=== PATIENT | male | born 1970 | race Caucasian/White ===

== ENCOUNTER 2019-12-31 16:15 | Emergency (ER) | payer MEDICAID ==
[~2019-12-31] VITALS: Ht 175.3 cm; Wt 83.6 kg
[~2019-12-31 16:15] MED LIST: DIAZ5TAB PO; HYDR-4383 PO; NO HOME MEDS
[2019-12-31 16:24] VITALS: BP 129/87
[2019-12-31] MEDS ORDERED: PENI500T2 PO (17:29)
[2019-12-31] MEDS ORDERED: penicillin V potassium 500mg tablet PO ONE (17:30)
[2019-12-31] MEDS ORDERED: HYDROcodone/acetaminophen 5mg/325mg tablet PO ONE (17:30)
== END 2019-12-31 17:43 | disposition home or self-care (01) ==
LOC: ER 16:16
DX: K08.89 Other specified disorders of teeth and supporting structures (principal); G89.29 Other chronic pain; Z72.89 Other problems related to lifestyle; Z56.0 Unemployment, unspecified; Z88.5 Allergy status to narcotic agent; Z79.2 Long term (current) use of antibiotics; Z79.899 Other long term (current) drug therapy
CPT/HCPCS: 99283

== ENCOUNTER 2020-06-30 15:45 | Emergency (ER) | payer MEDICAID ==
[~2020-06-30] VITALS: Ht 175.3 cm; Wt 84.5 kg
[2020-06-30 15:46] VITALS: BP 115/81
[2020-06-30] MEDS ORDERED: ketorolac tromethamine 15mg/ml inj. IM ONE (16:15)
[2020-06-30] MEDS ORDERED: IBUP-1984 PO (16:37)
== END 2020-06-30 17:35 | disposition home or self-care (01) ==
LOC: ER 15:46
DX: M25.462 Effusion, left knee (principal); M25.572 Pain in left ankle and joints of left foot; M25.562 Pain in left knee; G89.29 Other chronic pain; Z72.89 Other problems related to lifestyle; Z56.0 Unemployment, unspecified; Z88.5 Allergy status to narcotic agent; Z79.899 Other long term (current) drug therapy
CPT/HCPCS: 29505; 73564; 96372; 99284; J1885